=== PATIENT | female | born 1970 | race Caucasian/White ===

== ENCOUNTER 2017-06-16 09:44 | Emergency (ER) | payer OTHER, BC ==
[~2017-06-16] VITALS: Ht 157.5 cm; Wt 66.0 kg
[2017-06-16 09:49] VITALS: TEMP 37.1; Ht 157.5 cm; Wt 66.0 kg
[2017-06-16] MEDS ORDERED: IBUPROFEN 600 MG TAB PO STA (11:19)
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
[2017-06-16 12:00] VITALS: BP 141/96; PULSE 83; O2SAT 99
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
== END 2017-06-16 12:02 | disposition home or self-care (01) ==
LOC: EDBD 09:44 → C.EDB 09:45
DX: S49.92XA Unspecified injury of left shoulder and upper arm, initial encounter (principal); V43.52XA Car driver injured in collision with other type car in traffic accident, initial encounter